=== PATIENT | female | born 1940 | race Hispanic/Latino ===

== ENCOUNTER → 2018-06-01 | Outpatient (CLI) | payer MEDICARE, MEDICAID ==
[~2018-06-01] MED LIST: DIATRIZOATE MEGL/DIATRIZOA SOD 30 ML BTL PO ONE; IOPAMIDOL 370 MG/ML 200 ML INFUS..BTL INJ ONE; SODIUM CHLORIDE 0.9% 250ML 500 ML ONE; SODIUM CHLORIDE 0.9% 50ML 50 ML ONE
[2018-06-01 10:00] LABS: BASOPHILS % 0.4 % (0.0-1.0); EOSINOPHILS # (AUTO) 0.2 (0.0-0.4); EOSINOPHILS % 3.2 % (0.0-6.0); HEMATOCRIT 39.7 % (34.2-44.1); HEMOGLOBIN 13.5 g/dL (12.0-16.0); LYMPHOCYTES # (AUTO) 2.3 (1.0-3.2); LYMPHOCYTES % 31.4 % (18.0-39.1); MEAN CORPUSCULAR HEMOGLOBIN 29.5 pg (28-32); MEAN CORPUSCULAR VOLUME 86.7 fL (81-99); MONOCYTES # (AUTO) 0.8 (0.2-0.8); MONOCYTES % 10.8 % (4.4-11.3); NEUTROPHILS % 53.8 % (38.7-80.0); PLATELET COUNT 231 x10e3/uL (140-360); RED BLOOD COUNT 4.58 x10e6/uL (3.6-5.1); RED CELL DISTRIBUTION WIDTH 13.4 % (11.7-14.4)
--- NOTE | 2018-06-01 10:17 | Diagnostic Imaging Report ---
PROCEDURE: X-RAY CHEST, TWO VIEWS COMPARISON: None. INDICATIONS: PELVIC MASS FINDINGS: LUNGS: No consolidations or edema. PLEURA: No effusions or pneumothorax. HEART & MEDIASTINUM: The heart is within normal size-limits. BONES & SOFT TISSUES: No acute findings. CONCLUSION: No acute thoracic abnormality. Dictated by: Romaine Brewster M.D. on 06/01/2018 at 10:26 Electronically approved by: Rmoaine Brewster M.D. on 06/01/2018 at 10:26
[2018-06-01 10:20] LABS: ANION GAP 14.2 mmol/L (8-16); CALCIUM 9.5 mg/dL (8.4-10.2); CREATININE, SERUM 1.02 mg/dL (0.57-1.11); POTASSIUM 4.2 mmol/L (3.5-5.1)
[2018-06-01 10:22] LABS: BILIRUBIN,URINE NEGATIVE (NEGATIVE); CLARITY,URINE CLEAR (CLEAR); COLOR,URINE YELLOW (YELLOW); KETONES,URINE NEGATIVE (NEGATIVE); LEUKOCYTE ESTERASE ,URINE NEGATIVE (NEGATIVE); NITRITE,URINE NEGATIVE (NEGATIVE); PROTEIN,URINE DIPSTICK NEGATIVE (NEGATIVE); URINE UROBILINOGEN 0.2 mg/dL (0.2 - 1)
--- NOTE | 2018-06-01 11:32 | Diagnostic Imaging Report ---
EXAMINATION: CT of the abdomen and pelvis with contrast. TECHNIQUE: Spiral CT images of the abdomen and pelvis were performed from the lung bases to the lesser trochanters after the intravenous administration of 100 cc of Isovue-370 and the oral administration of Gastrografin. Coronal and sagittal reformatted images were obtained. COMPARISON: None. CLINICAL HISTORY:Intra-abdominal or pelvic mass DISCUSSION: ABDOMEN/PELVIS: LOWER THORAX:Reticular and ground glass opacities in the dependent portion of the lower lobes compatible with subsegmental atelectasis. Lung bases are otherwise unremarkable. HEPATOBILIARY: Hepatic parenchyma is diffusely hypoattenuating compatible with steatosis. No focal hepatic lesion. No intrahepatic biliary ductal dilatation. Questionable small radiopaque calculus in the dependent gallbladder seen on series 2 image 33. No wall thickening or pericholecystic inflammation. SPLEEN: No splenomegaly. PANCREAS: No focal mass or ductal dilatation. Incidental note of pancreas divisum. ADRENALS: No nodules. KIDNEYS/URETERS: Subcentimeter hypoattenuating lesion in the lower pole of the right kidney too small to further characterize the likely to represent a small cyst. No additional focal renal lesion. No hydronephrosis. No calculus. PELVIC ORGANS/BLADDER: The urinary bladder is unremarkable. Uterus is not identified in keeping with hysterectomy. No adnexal mass. PERITONEUM/RETROPERITONEUM: No ascites. No pneumoperitoneum. LYMPH NODES: No pelvic sidewall, retroperitoneal, or mesenteric lymphadenopathy. VESSELS: Atherosclerotic calcification of the abdominal aorta, branch vessels, and iliac arterial systems without aneurysmal dilatation. Left hepatic artery replaced to the left gastric artery. Otherwise conventional hepatic arterial anatomy. Single right renal artery and 2 left renal arteries. GI TRACT: The large bowel shows no distention or wall thickening the appendix is not identified and has presumably been resected. The descending and sigmoid colon are collapsed and poorly evaluated. No small bowel dilatation to suggest obstruction. The stomach is collapsed with prominence of the rugal folds. BONES AND SOFT TISSUE: No osseous destructive lesions. Bone island left iliac wing. Age-indeterminate though probably subacute severe anterior compression fracture of L2 with approximately 7 mm fracture fragment retropulsion into the spinal canal. Fracture lines are visualized on series 2 image 22 and 24. No soft tissue abnormalities. IMPRESSION: No intra-abdominal or pelvic mass lesion per clinical query. Age indeterminate though likely subacute severe compression fracture of the L2 vertebral body with 7 mm retropulsion of the inferior endplate into the spinal canal. Correlate for point tenderness. Findings were discussed by telephone with the nurse at Dr. Clark office at 11:25 AM 06/01/2018. Signed by: Dr. Romaine Brewster M.D. on 06/01/2018 11:28 AM
== END ==
LOC: CT 09:20
PROVIDERS: ATTEND Surgery
DX: R19.00 Intra-abdominal and pelvic swelling, mass and lump, unspecified site (principal)
CPT/HCPCS: 36415; 71046; 74177; 80053; 81003; 85025; 96360; J7050; Q9967